=== PATIENT | male | born 1945 | race Caucasian/White ===

== ENCOUNTER → 2016-08-24 | Outpatient (CLI) | payer MEDICARE, OTHER ==
[~2016-08-24] MED LIST: ASPIRIN 81M81 MG/TA2 PO; BACTRIM DS 8001 TAB PO; CRANBERRY FRUI405 MG PO; FIBERCON; FLEXERIL10 MG PO; NORCO 325 MG-51 TAB PO; SEPTRA DS 8001 TAB PO; TYLENOL 325MG325 MG PO; TYLENOL 8 HR PO; VITAMIN C500 MG PO
== END ==
LOC: COL.RAD 09:07
DX: C61 Malignant neoplasm of prostate (principal); Z90.79 Acquired absence of other genital organ(s); R97.21 Rising PSA following treatment for malignant neoplasm of prostate; N28.1 Cyst of kidney, acquired; K76.0 Fatty (change of) liver, not elsewhere classified
CPT/HCPCS: A9503; Q9967

== ENCOUNTER 2018-03-06 11:56 | Day surgery (SDC) | payer MEDICARE, OTHER ==
[~2018-03-06] VITALS: Ht 167.6 cm; Wt 89.8 kg
[2018-03-06 12:15] VITALS: BP 120/76; PULSE 80; TEMP 97.9
[2018-03-06] MEDS ORDERED: ULTRAM 50MG TAB50 MG PO (13:01)
[2018-03-06] MEDS ORDERED: CRANBERRY500 M3 PO (13:02)
[2018-03-06] MEDS ORDERED: daily fiber PO (13:03)
[2018-03-06] MEDS ORDERED: MASON NATURAL2000 IU PO (13:04)
[2018-03-06] MEDS ORDERED: VITAMINC1000TA PO (13:05)
[2018-03-06 15:55] VITALS: BP 119/73; PULSE 70
[2018-03-06 16:10] VITALS: BP 100/58; PULSE 74
[2018-03-06 16:16] VITALS: TEMP 98.1
[2018-03-06 16:25] VITALS: BP 115/59; PULSE 68
== END 2018-03-06 17:00 | disposition home or self-care (01) ==
LOC: SDCO 11:56
DX: N21.0 Calculus in bladder (principal); R31.0 Gross hematuria; Z85.51 Personal history of malignant neoplasm of bladder; Z85.46 Personal history of malignant neoplasm of prostate; Q23.1 Congenital insufficiency of aortic valve; I35.0 Nonrheumatic aortic (valve) stenosis; J44.9 Chronic obstructive pulmonary disease, unspecified; Z85.9 Personal history of malignant neoplasm, unspecified; F17.210 Nicotine dependence, cigarettes, uncomplicated; Z80.0 Family history of malignant neoplasm of digestive organs; Z80.1 Family history of malignant neoplasm of trachea, bronchus and lung; Z87.442 Personal history of urinary calculi
CPT/HCPCS: J0690; J2704; J3010; J7120

== ENCOUNTER 2020-09-04 13:03 | Observation (INO) | payer MEDICARE, OTHER ==
[~2020-09-04] VITALS: Ht 167.6 cm; Wt 89.5 kg
[~2020-09-04 13:03] MED LIST changes: +CRANBERRY500 M3 PO; +MASON NATURAL2000 IU PO; +ULTRAM 50MG TAB50 MG PO; +VITAMINC1000TA PO; +daily fiber PO
[2020-09-04 13:36] LABS: BASO % 0.3 % (0.0-2.0); EOS # 0.1 (0.0-0.7); EOS % 1.4 % (0-4.0); GRAN # 4.5 (1.4-6.5); GRAN % 67.6 % (42.2-75.2); HEMATOCRIT 50.6 % (42.0-52.0); HEMOGLOBIN 16.5 g/dl (13.5-18.0); LYMPH # 1.3 (1.2-3.4); LYMPH % 19.6 % (20.0-51.0); MEAN CELL VOLUME 93 fl (80.0-100.0); MEAN CORPUSCULAR HEMOGLOBIN 30 pg (27.0-31.0); MEAN CORPUSCULAR HGB CONC 33 g/dl (33.0-37.0); MONO # 0.7 (0.1-0.6); PLATELET COUNT 214 K/mm3 (130-400); RED BLOOD COUNT 5.47 M/mm3 (4.20-5.60); REDCELL DISTRIBUTION WIDTH-CV 12.5 % (11.5-14.5)
[2020-09-04 13:48] LABS: ALBUMIN 4.5 gm/dL (3.5-5.0); BILIRUBIN,TOTAL 0.7 mg/dL (0.0-1.0); CALCIUM 9.3 mg/dL (8.4-10.2); CREATININE, serum 1.06 (0.66-1.25); POTASSIUM 4.8 mmol/L (3.4-5.0); TOTAL PROTEIN 7.9 gm/dL (6.4-8.2)
--- NOTE | 2020-09-04 19:42 | NUR ---
PT ASSISTED TO BATHROOM AFTER HE ATE A SANDWICH. GAIT SLOW AND STEADY. VOIDS WITHOUT PROBLEM. BACK TO BED, IVF TO LEFT FOREARM INFUSING WITHOUT PROBLEM. MEDICATED WITH SCHEDULED HS MED AND DOSE OF TRAMADOL 100MG PO AT THIS TIME. WANTS TO TAKE OXYCODONE ONLY LAST RESORT FOR PAIN MANAGEMENT.
[2020-09-04 20:19] VITALS: BP 113/53; PULSE 96; TEMP 98.1
[2020-09-04 23:22] VITALS: BP 127/60; PULSE 71; TEMP 97.9
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
--- NOTE | 2020-09-05 01:40 | NUR ---
MEDICATED WITH TRAMADOL 100MG PO FOR LEFT RIB PAIN. ASSISTED TO BATHROOM AND BACK TO BED.
[2020-09-05 03:50] VITALS: BP 119/58; PULSE 71; TEMP 97.3
[2020-09-05 08:09] VITALS: BP 127/63; PULSE 86; TEMP 97.7
--- NOTE | 2020-09-05 09:23 | NUR ---
PT UP TO BR WITH SBA, VOIDED AND HAD LG FORMED STOOL. PO PAIN MEDS FOR PAIN. VSS, PT WANTS TO GO HOME TODAY. EATING AND DRINKING NO N/V. MILD TO MODERATE PAIN TO RIBS AND BACK.
[2020-09-05] MEDS ORDERED: ULTRAM 50MG TAB50 MG PO (10:32)
[2020-09-05] MEDS ORDERED: ROXICODONE 55 MG/TAB PO (10:32)
== END 2020-09-05 11:32 | disposition home or self-care (01) ==
LOC: COL.ER 13:03 → SURG 15:52
PROVIDERS: Nurse Practitioner; ADMIT Surgery
DX: S22.42XA Multiple fractures of ribs, left side, initial encounter for closed fracture (principal); S32.018A Other fracture of first lumbar vertebra, initial encounter for closed fracture; R55 Syncope and collapse; M19.90 Unspecified osteoarthritis, unspecified site; G89.29 Other chronic pain; M54.5 Low back pain; F17.210 Nicotine dependence, cigarettes, uncomplicated; W11.XXXA Fall on and from ladder, initial encounter; Z88.1 Allergy status to other antibiotic agents; Z90.89 Acquired absence of other organs; Z90.79 Acquired absence of other genital organ(s); Z79.899 Other long term (current) drug therapy
CPT/HCPCS: 99222; 99231-AI; A9284; G0378; J7030

== ENCOUNTER → 2020-11-22 | Outpatient (CLI) | payer MEDICARE, OTHER ==
[~2020-11-22] MED LIST changes: +ROXICODONE 55 MG/TAB PO
== END ==
LOC: COL.RAD 10:00
DX: Z12.2 Encounter for screening for malignant neoplasm of respiratory organs (principal); F17.210 Nicotine dependence, cigarettes, uncomplicated; R91.8 Other nonspecific abnormal finding of lung field

== ENCOUNTER → 2021-11-24 | Outpatient (CLI) | payer MEDICARE, OTHER | LOC: COL.RAD 10-07 14:00 | DX: Z12.2 Encounter for screening for malignant neoplasm of respiratory organs (principal); J43.9 Emphysema, unspecified; R91.8 Other nonspecific abnormal finding of lung field; F17.210 Nicotine dependence, cigarettes, uncomplicated ==

== ENCOUNTER 2023-02-22 08:00 | Outpatient (RCR) | payer MEDICARE, OTHER | END 2023-03-01 | disposition home or self-care (01) | LOC: MKS.ESL.PT | DX: M54.50 Low back pain, unspecified (principal) ==

== ENCOUNTER → 2023-04-05 | Outpatient (CLI) | payer MEDICARE, OTHER | LOC: MHCPAIN 07:46 | DX: M47.817 Spondylosis without myelopathy or radiculopathy, lumbosacral region (principal); M54.50 Low back pain, unspecified | CPT/HCPCS: J0665 ==

== ENCOUNTER → 2023-07-30 | Outpatient (CLI) | payer MEDICARE, OTHER ==
[~2023-07-30] MED LIST changes: +Lidocaine PF 2% (20 MG/ML) 5 ML VIAL ONE; +Midazolam 2 MG/2 ML VIAL ONE; +fentaNYL 50 MCG/ML 2 ML VIAL ONE
== END ==
LOC: MHCPAIN 08:31
DX: M47.817 Spondylosis without myelopathy or radiculopathy, lumbosacral region (principal)
CPT/HCPCS: J0665; J2250; J3010

== ENCOUNTER → 2023-10-17 | Outpatient (CLI) | payer MEDICARE, OTHER ==
[~2023-10-17] MED LIST changes: +ASPIRIN E.C. 8181 MG PO; +LIPITOR 80MG80 MG PO; -Lidocaine PF 2% (20 MG/ML) 5 ML VIAL ONE; +MAGNESIUM250 M1 PO; +MOBIC15 MG PO; -Midazolam 2 MG/2 ML VIAL ONE; +NITROSTAT0.4 MG/TAB SL; +TOPROL XL 25MG25 MG PO; +TURMERIC500 MG PO; -fentaNYL 50 MCG/ML 2 ML VIAL ONE
== END ==
LOC: MHCPAIN 11:09
DX: M48.061 Spinal stenosis, lumbar region without neurogenic claudication (principal); M47.816 Spondylosis without myelopathy or radiculopathy, lumbar region
CPT/HCPCS: G0463

== ENCOUNTER 2023-10-28 12:33 | Inpatient (IN) | payer MEDICARE, OTHER ==
[~2023-10-28] VITALS: Ht 162.6 cm; Wt 66.4 kg
[~2023-10-28 12:33] MED LIST changes: -ASPIRIN E.C. 8181 MG PO; -LIPITOR 80MG80 MG PO; -MAGNESIUM250 M1 PO; -MOBIC15 MG PO; -NITROSTAT0.4 MG/TAB SL; -TOPROL XL 25MG25 MG PO; -TURMERIC500 MG PO
[2023-10-28 12:52] LABS: BASO % 0.4 % (0.0-2.0); EOS # 0.1 K/mm3 (0.0-0.7); EOS % 1.6 % (0.0-4.0); GRAN # 6.2 K/mm3 (1.4-6.5); GRAN % 69.6 % (42.2-75.2); HEMATOCRIT 50.2 % (42.0-52.0); HEMOGLOBIN 16.6 g/dl (13.5-18.0); LYMPH # 1.7 K/mm3 (1.2-3.4); LYMPH % 18.5 % (20.0-51.0); MEAN CELL VOLUME 93 fl (80.0-100.0); MEAN CORPUSCULAR HEMOGLOBIN 31 pg (27-31); MEAN CORPUSCULAR HGB CONC 33 g/dl (33.0-37.0); MEAN PLATELET VOLUME 9.1 fl (7.4-10.4); MONO # 0.8 K/mm3 (0.1-0.6); MONO % 9.2 % (1.7-9.3); PLATELET COUNT 213 K/mm3 (130-400); RED BLOOD COUNT 5.42 M/mm3 (4.20-5.60); REDCELL DISTRIBUTION WIDTH-CV 12.7 % (11.5-14.5)
[2023-10-28] MEDS ORDERED: NS 1,000 ML IV ONE (13:00)
[2023-10-28 13:12] LABS: ALBUMIN 3.9 g/dL (3.4-4.8); BILIRUBIN,TOTAL 0.3 mg/dL (0.2-1.2); CALCIUM 10.2 mg/dL (8.4-10.2); CREATININE, serum 1.23 mg/dL (0.72-1.25); TOTAL PROTEIN 7.8 g/dl (6.2-8.1)
[2023-10-28 13:18] LABS: TROPONIN-I 0.015 ng/mL (0.00-0.033)
[2023-10-28] MEDS ORDERED: Morphine 4 MG/ML VIAL IV PRN ×2 (13:45→15:00)
[2023-10-28] MEDS ORDERED: Mag/Al Hydrox/Simeth Susp 30 ML CUP PO PRN (14:45)
[2023-10-28] MEDS ORDERED: Magnes Hydrox (MOM) 80 MG/ML 30 ML CUP PO PRN (14:45)
[2023-10-28] MEDS ORDERED: Ondansetron 4 MG/2 ML VIAL IV PRN ×2 (14:45→15:00)
[2023-10-28] MEDS ORDERED: Heparin 5,000 UNITS/ML 1 ML VIAL IV ONE (14:45)
[2023-10-28] MEDS ORDERED: Heparin 5,000 UNITS/ML 1 ML VIAL IV PRN (14:45)
[2023-10-28] MEDS ORDERED: Heparin/D5W 250 ML IV SCH (14:45)
[2023-10-28] MEDS ORDERED: Albuterol/Ipratropium 3 MG-0.5 MG/3 ML Neb Soln IH PRN (15:00)
[2023-10-28] MEDS ORDERED: oxyCODONE 5 MG TAB PO PRN (15:00)
[2023-10-28] MEDS ORDERED: Acetaminophen 500 MG TAB PO PRN (15:00)
[2023-10-28 16:25] LABS: INR 1.1 (0.8-3.0); PROTHROMBIN TIME 11.5 SECONDS (9.7-12.8)
[2023-10-28] MEDS ORDERED: Albuterol/Ipratropium 3 MG-0.5 MG/3 ML Neb Soln IH SCH (16:30)
[2023-10-28 16:49] LABS: PARTIAL THROMBOPLASTIN TIME 177.6 SECONDS (26.0-37.0)
[2023-10-28 16:59] VITALS: BP 140/69; PULSE 66; TEMP 98.1
--- NOTE | 2023-10-28 17:32 | NUR ---
KALPESH ARRIVED TO UNIT FROM ER AWAKE ALERT AND ORIENTED. PATIENT STATES HIS CHEST PAIN IS STILL THERE, SITS IN THE LEFT UPPER CHEST, RADIATES TO LEFT SHOULDER, 4/10 ON NUMERIC PAIN SCALE, CONSTANT, DOES NOT STOP. PATIENT FEELS LIKE ITS "ALWAYS THERE." PER PATIENT HE SEES DR LOWRY AN OUT PATIENT (HAS ONLY SEEN ESSENCE NURSE SIN). PATIENT APPEARS TO BE IN NO ACUTE PAIN/DSICOMFORT. PATIENT DENIES ANY SOB.
--- NOTE | 2023-10-28 17:35 | NUR ---
THIS RN WAS CALLED BY LAB AND INFORMED OF PATIENT HIGH PTT AND XA RESULT. THIS RN ASKED THE ER NURSE THAT MARLEE THE PATINET TO THE UNIT IF HIS XA LAB WAS DRAWN BEFORE OR AFTER THE HEPARIN DRIP WAS INITIATED. THE ER NURSE STATED "I DONT KNOW. DID THEY?" AFTER JONAS DIGGING THIS RN FOUND OUT LAB HAD ADDED ON THE XA AND PTT TO BLOOD TAKEN AFTER HEPARIN DRIP WAS INITIATED,AND NO LONGER HAD THE BLOOD WORK DRAWN PRIOR TO THIS. MD CONTACT AND INFORMED, AND ORDERED NEW HEP XA FOR NOW, AND STATED THIS RN TO TITRATE DRIP PER PROTOCOL BASED OFF THE NEW RESULT.
[2023-10-28] MEDS ORDERED: Nitroglycerin 2% Topical Oint 1 GM UD TD SCH (18:00)
--- NOTE | 2023-10-28 18:30 | NUR ---
XA NOW 0.47- PER PROTOCOL GOAL, NO CHANGE
[2023-10-28] MEDS ORDERED: TURMERIC500 MG PO (18:40)
[2023-10-28] MEDS ORDERED: MAGNESIUM250 M1 PO (18:40)
[2023-10-28] MEDS ORDERED: MOBIC15 MG PO (18:41)
--- NOTE | 2023-10-28 19:04 | NUR ---
PATIENT SITTING UP IN BED WATCHING TV WITH FAMILY AT BEDSIDE WITH NO ACUTE DISTRESS NOTED. PATIENT ON ROOM AIR. HEPARIN INFUSING INTO LEFT WRIST WITH NO COMPLICATIONS NOTED. PATIENT REQUESTED OXYGEN DUE TO WEARING IT AT HOME AT NIGHT. PATIENT VERBALIZED UNDERSTANDING THAT NC WOULD BE GIVEN. PATIENT DENIES ANY OTHER NEEDS AT THIS TIME. PATIENT CARE ASSUMED FROM [facility]. BED IN LOW POSITION WITH WHEELS LOCKED WITH RAILS UP X2 AND CALL LIGHT WITHIN REACH.
[2023-10-28 19:24] VITALS: BP 128/74; PULSE 89; TEMP 98
[2023-10-28 20:55] VITALS: BP_SYST 128
--- NOTE | 2023-10-28 20:55 | NUR ---
PATIENT RESTING IN BED WATCHING TV WITH NO FAMILY PRESENT WITH NO ACUTE DISTRESS NOTED. PATIENT ON ROOM AIR. HEPARIN INFUSING INTO LEFT WRIST WITH NO COMPLICATIONS NOTED. ASSESSMENT AND MEDICATION ADMINISTRATION COMPLETED AT THIS TIME. PATIENT TOLERATED WELL. PATIENT REQUESTED DIET SPRITE AND ICE CREAM. ICE CREAM, CUP OF ICE, AND DIET SPRITE GIVEN. PATIENT DENIES ANY OTHER NEEDS. BED IN LOW POSITION WITH WHEELS LOCKED WITH RAILS UP X2 AND CALL LIGHT WITHIN REACH.
[2023-10-28] MEDS ORDERED: Docusate Sodium 100 MG CAP PO SCH (21:00)
[2023-10-28] MEDS ORDERED: Melatonin 3 MG TAB PO PRN (21:00)
[2023-10-28] MEDS ORDERED: Famotidine 20 MG TAB PO SCH (21:00)
--- NOTE | 2023-10-28 22:30 | NUR ---
HOSPITALIST DIONISIO REDDY CALLED FOR HIGH CRITICAL TROPONIN OF 0.748. NO NEW ORDERS RECIEVED.
[2023-10-28 23:31] VITALS: BP 121/62; PULSE 64; TEMP 97.6
[2023-10-29] VITALS (21 sets, daily range): BP systolic 93–129; BP diastolic 42–80; PULSE 66–101; TEMP 98–98.7
[2023-10-29 07:13] LABS: CALCIUM 9.3 mg/dL (8.4-10.2); CHOLESTEROL RISK RATIO 4.8; CREATININE, serum 1.07 mg/dL (0.72-1.25); MAGNESIUM 1.9 mg/dL (1.6-2.6); POTASSIUM 4.1 mEq/L (3.5-4.5)
[2023-10-29] MEDS ORDERED: Cholecalciferol (Vit D3) 1000 Units TAB PO SCH (09:00)
[2023-10-29] MEDS ORDERED: Ascorbic Acid 500 MG TAB PO SCH (09:00)
--- NOTE | 2023-10-29 09:00 | NUR ---
PATIENT SITTING UP ON EDGE OF BED UPON ENTERING ROOM. MORNING MEDICATIONS HELD DUE TO NPO STATUS. HEPARIN GTT INFUSING. UPDATED PATIENT ON PLAN OF CARE. PATIENT REPORTS PAIN OF 1/10 TO HIS CHEST AT THIS TIME. WILL CONTINUE TO MONITOR.
[2023-10-29] MEDS ORDERED: 1/2 NS 1,000 ML IV SCH ×2 (09:15→11:00)
--- NOTE | 2023-10-29 09:54 | NUR ---
SEE MERGE FOR PROCEDURE DOCUMENTATION
--- NOTE | 2023-10-29 09:55 | NUR ---
PATIENT OFF UNIT AT THIS TIME FOR PROCEDURE.
[2023-10-29] MEDS ORDERED: Heparin 1,000 UNITS/ML 10 ML Multi-Dose VIAL IV SCH (10:23)
[2023-10-29] MEDS ORDERED: fentaNYL 50 MCG/ML 2 ML VIAL IV SCH (10:28)
[2023-10-29] MEDS ORDERED: niCARdipine (Cath Lab) 100 MCG/ML 10 ML VIAL INCOR SCH (10:29)
[2023-10-29] MEDS ORDERED: Iohexol 350 - 100 ML VIAL INCOR ONE (10:31)
--- NOTE | 2023-10-29 11:00 | NUR ---
PATIENT ARRIVED BACK TO UNIT AT THIS TIME. TR BAND INTACT WITH 14CC OF AIR, SITE IS C/D/I. PATIENT DENIES ANY PAIN. VITAL SIGNS STABLE, WILL CONTINUE TO MONITOR.
--- NOTE | 2023-10-29 11:17 | NUR ---
PATIENT SPO2 ON RA 96%, TAKING RT TX NOW, TOLERATING WELL/
--- NOTE | 2023-10-29 12:13 | NUR ---
1100-PATIENT ALERT AND ORIENTED, TRANSFERRED VIA SLIDE INDEPENDENTLY TO BED AND TRANSPORTED TO [facility]. RADIAL SITE ASSESSED, CDI. PATIENT AMBULATED WITH SBA TO BATHROOM AND VOIDED. POSITIONED BACK IN BED WITH RIGHT ARM ELEVATED ON PILLOW, VITAL SIGNS TAKEN. VSS. PT DENIES PAIN AT THIS TIME. TRANSFER OF CARE TO GALLO CASEY. CALL LIGHT PLACED WITHIN REACH, BED IN LOWEST POSITION, X3 BEDRAILS IN PLACE.
--- NOTE | 2023-10-29 14:49 | NUR ---
14CC OF AIR REMOVED FROM TR BAND. THIS RN REMOVED THE BAND AT THIS TIME. SITE IS C/D/I WITH NO HEMATOMA. BANDAID IN PLACE. VITAL SIGNS STABLE. WILL CONTINUE TO MONITOR.
--- NOTE | 2023-10-29 15:18 | NUR ---
Mold Design Engineer met with patient to discuss discharge planning. Patient lives in [place] with his , Sweta (ph#[phone]) and sees Dr. Shelton for primary care. Patient has most of his medications mailed to him from the [facility] but also utilizes the [facility]. Patient uses nighttime oxygen from [facility]. Patient reported he is independent with ADLS including driving. Patient stated his is his DPOA-HC. Patient plans to return home at time of discharge. Discharge Plan; Home
[2023-10-29] MEDS ORDERED: Famotidine 20 MG TAB PO SCH (21:00)
--- NOTE | 2023-10-29 23:32 | NUR ---
PATIENT AMBULATING IN PARR. PATIENT STOPPED AT THE NURSES STATION TO TELL NURSE THE TYLENOL ADMINISTERED EARLIER WAS INEFFECTIVE. THIS NURSE ADMINISTERED OXYCODONE PRN PER AUG. WILL MONITOR
[2023-10-30] VITALS (14 sets, daily range): BP systolic 114–136; BP diastolic 67–80; PULSE 61–78; TEMP 97.8–99.2
--- NOTE | 2023-10-30 05:33 | NUR ---
PATIENT AMBULATING HALLS. ALERT AND ORIENTED. HAD SHOWER THIS AM. HAS BEEN NPO SINCE 0000. PATIENT DENIES NEEDS OR CONCERNS.
[2023-10-30 07:04] LABS: CALCIUM 9.1 mg/dL (8.4-10.2); CREATININE, serum 0.96 mg/dL (0.72-1.25)
[2023-10-30] MEDS ORDERED: 1/2 NS 1,000 ML IV SCH ×2 (08:15→08:45)
[2023-10-30 08:25] LABS: BASO % 0.4 % (0.0-2.0); EOS # 0.1 K/mm3 (0.0-0.7); EOS % 1.8 % (0.0-4.0); GRAN # 4.9 K/mm3 (1.4-6.5); GRAN % 67.3 % (42.2-75.2); HEMATOCRIT 44.3 % (42.0-52.0); HEMOGLOBIN 15.1 g/dl (13.5-18.0); LYMPH # 1.3 K/mm3 (1.2-3.4); LYMPH % 17.8 % (20.0-51.0); MEAN CELL VOLUME 89 fl (80.0-100.0); MEAN CORPUSCULAR HEMOGLOBIN 30 pg (27-31); MEAN CORPUSCULAR HGB CONC 34 g/dl (33.0-37.0); MEAN PLATELET VOLUME 9.6 fl (7.4-10.4); MONO # 0.9 K/mm3 (0.1-0.6); PLATELET COUNT 194 K/mm3 (130-400); RED BLOOD COUNT 4.98 M/mm3 (4.20-5.60); REDCELL DISTRIBUTION WIDTH-CV 12.8 % (11.5-14.5)
--- NOTE | 2023-10-30 09:15 | NUR ---
PATIENT ALERT AND ORIENTED X4.PATIENT LAYING IN BED RESTING. PATIENT CURRENTLY NPO FOR PROCEDURE. PATIENT DENIES AY CHEST PAIN OR SOB AT THIS TIME. PATIENT VSS WITH IN NORMAL LIMITS. CALL LIGHT WITHIN REACH. BED AT LOWEST POSITION.
[2023-10-30] MEDS ORDERED: LR 1,000 ML IV SCH (10:45)
[2023-10-30] MEDS ORDERED: Iohexol 300 - 100 ML VIAL IV ONE (11:13)
[2023-10-30] MEDS ORDERED: NS 100 ML IV SCH (11:14)
--- NOTE | 2023-10-30 14:54 | NUR ---
Pt back to Medical 352 - bedside handoff performed with GALLO Hassan. Vitals initiated and stable, pt AOx4. Call light in reach, no family at bedside.
[2023-10-30] MEDS ORDERED: LIPITOR 80MG80 MG PO (15:29)
[2023-10-30] MEDS ORDERED: ASPIRIN E.C. 8181 MG PO (15:30)
[2023-10-30] MEDS ORDERED: NITROSTAT0.4 MG/TAB SL (15:31)
[2023-10-30] MEDS ORDERED: TOPROL XL 25MG25 MG PO (15:32)
--- NOTE | 2023-10-30 17:22 | NUR ---
PATIENT DISCHARGE INSTRUCTIONS GIVEN. PATIENT QUESTIONS ANSWERED. IV AND TELE REMOVED. PATIENT EXPRESSES BEING READY TO GO HOME. DENIES ANY CHEST PAIN. PATIENT WILL BE ESCORTED OUT OF UNIT BY PCT.
--- NOTE | 2023-10-30 17:25 | NUR ---
PATIENT ESCORTED OUT OF UNIT BY PCT.
== END 2023-10-30 17:24 | disposition home or self-care (01) | DRG 282 ==
LOC: COL.ER 12:33 → MEDICAL 14:05
PROVIDERS: Emergency Medicine; Physician Assistant; ADMIT Internal Medicine
PROC: 4A023N7 Measurement of Cardiac Sampling and Pressure, Left Heart, Percutaneous Approach (ICD-10-PCS; principal; 2023-10-29)
PROC: B2111ZZ Fluoroscopy of Multiple Coronary Arteries using Low Osmolar Contrast (ICD-10-PCS; 2023-10-29)
DX: I21.4 Non-ST elevation (NSTEMI) myocardial infarction (principal); G89.29 Other chronic pain; F17.210 Nicotine dependence, cigarettes, uncomplicated; E78.5 Hyperlipidemia, unspecified; M19.90 Unspecified osteoarthritis, unspecified site; I35.1 Nonrheumatic aortic (valve) insufficiency; J43.9 Emphysema, unspecified; I20.0 Unstable angina; M54.9 Dorsalgia, unspecified; Z85.46 Personal history of malignant neoplasm of prostate; Z85.51 Personal history of malignant neoplasm of bladder; Z90.89 Acquired absence of other organs; Z92.3 Personal history of irradiation; Z88.1 Allergy status to other antibiotic agents; Z79.899 Other long term (current) drug therapy; Z23 Encounter for immunization
CPT/HCPCS: C1769; C1894; G0378; J1644; J2270; J2404; J2704; J3010; J7030; Q9967

== ENCOUNTER → 2023-11-08 | Outpatient (CLI) | payer MEDICARE, OTHER ==
[~2023-11-08] MED LIST changes: +ASPIRIN E.C. 8181 MG PO; +LIPITOR 80MG80 MG PO; +MAGNESIUM250 M1 PO; +MOBIC15 MG PO; +NITROSTAT0.4 MG/TAB SL; +TOPROL XL 25MG25 MG PO; +TURMERIC500 MG PO
== END ==
LOC: MHCPAIN 11-07 08:15
DX: M54.16 Radiculopathy, lumbar region (principal)

== ENCOUNTER → 2023-12-24 | Outpatient (CLI) | payer MEDICARE, OTHER | LOC: MHCPAIN 13:15 | DX: M47.817 Spondylosis without myelopathy or radiculopathy, lumbosacral region (principal); M48.061 Spinal stenosis, lumbar region without neurogenic claudication; E11.40 Type 2 diabetes mellitus with diabetic neuropathy, unspecified; M25.512 Pain in left shoulder; Z79.4 Long term (current) use of insulin | CPT/HCPCS: G0463 ==

== ENCOUNTER 2024-02-20 17:22 | Inpatient (IN) | payer MEDICARE, OTHER ==
[~2024-02-20] VITALS: Ht 162.6 cm; Wt 83.6 kg
[2024-02-20] MEDS ORDERED: Ondansetron 4 MG/2 ML VIAL IV ONE (17:45)
[2024-02-20] MEDS ORDERED: NS 1,000 ML IV ONE (17:45)
[2024-02-20] MEDS ORDERED: Morphine 4 MG/ML VIAL IV ONE (17:45)
[2024-02-20 18:25] LABS: BASO % 0.3 % (0.0-2.0); EOS # 0.1 K/mm3 (0.0-0.7); GRAN # 8.2 K/mm3 (1.4-6.5); GRAN % 85.3 % (42.2-75.2); HEMATOCRIT 39.8 % (42.0-52.0); HEMOGLOBIN 12.8 g/dl (13.5-18.0); LYMPH # 0.8 K/mm3 (1.2-3.4); LYMPH % 7.9 % (20.0-51.0); MEAN CELL VOLUME 92 fl (80.0-100.0); MEAN CORPUSCULAR HEMOGLOBIN 30 pg (27-31); MEAN CORPUSCULAR HGB CONC 32 g/dl (33.0-37.0); MEAN PLATELET VOLUME 9.1 fl (7.4-10.4); MONO # 0.5 K/mm3 (0.1-0.6); MONO % 5.2 % (1.7-9.3); PLATELET COUNT 245 K/mm3 (130-400); RED BLOOD COUNT 4.34 M/mm3 (4.20-5.60); REDCELL DISTRIBUTION WIDTH-CV 13.4 % (11.5-14.5)
[2024-02-20 18:50] LABS: ALANINE AMINOTRANSFERASE 18 U/L (0-55); ALBUMIN 4.2 g/dL (3.4-4.8); ALKALINE PHOSPHATASE 108 U/L (40-150); ANION GAP 13 mmol/L (7-16); AST,SGOT 14 U/L (5-34); BILIRUBIN,TOTAL 0.3 mg/dL (0.2-1.2); BLOOD UREA NITROGEN 15 mg/dL (8-26); CALCIUM 10.1 mg/dL (8.4-10.2); CHLORIDE 107 mEq/L (98-107); GLUCOSE 130 mg/dL (70-99); LIPASE 16 U/L (8-78); POTASSIUM 3.8 mEq/L (3.5-4.5); SODIUM 143 mEq/L (136-145); TOTAL PROTEIN 7.8 g/dl (6.2-8.1)
[2024-02-20 19:13] LABS: TROPONIN-I < 0.010 ng/mL (0.00-0.033)
[2024-02-20] MEDS ORDERED: Ketorolac 30 MG/ML VIAL IV ONE (19:15)
[2024-02-20] MEDS ORDERED: Iohexol 300 - 100 ML VIAL IV ONE (19:36)
[2024-02-20] MEDS ORDERED: NS 100 ML IV ONE (19:36)
[2024-02-20] MEDS ORDERED: HYDROmorphone 0.5 MG/0.5 ML SYRINGE IV PRN (20:15)
[2024-02-20] MEDS ORDERED: Acetaminophen 325 MG TAB PO PRN (20:15)
[2024-02-20] MEDS ORDERED: Ondansetron 4 MG/2 ML VIAL IV PRN (20:15)
[2024-02-20] MEDS ORDERED: NS 1,000 ML IV SCH (20:15)
[2024-02-20] MEDS ORDERED: LIPITOR 80MG80 MG PO (20:35)
[2024-02-20] MEDS ORDERED: PLAVIX 75MG TAB75 MG PO (20:35)
[2024-02-20] MEDS ORDERED: CRANBERRY FRUI425 MG PO (20:37)
[2024-02-20] MEDS ORDERED: traMADol 50 MG TAB PO PRN (20:45)
[2024-02-20 21:45] LABS: COLLECTION METHOD CATHETER
[2024-02-20 21:51] LABS: URINE APPEARANCE CLEAR (CLEAR/HAZY); URINE BLOOD NEGATIVE (NEGATIVE); URINE COLOR YELLOW (YELLOW); URINE GLUCOSE NEGATIVE (NEGATIVE); URINE KETONE NEGATIVE (NEGATIVE); URINE NITRATE NEGATIVE (NEGATIVE); URINE PROTEIN(semi-quant) 1+ (NEGATIVE); URINE UROBILINOGEN 0.2 E.U/dL (0.2-1.0)
[2024-02-21] VITALS (17 sets, daily range): BP systolic 100–127; BP diastolic 50–70; PULSE 84–99; TEMP 98.1–99.5
--- NOTE | 2024-02-21 04:06 | NUR ---
Patient arrived to surgical unit from ER at approximately 0330. Alert and oriented, and able to make needs known. Reports level 7 pain to abdomen. Given PRN Dilaudid as requested. Peripheral IV to right forearm with IV fluids and Zosyn running per orders. Denies SOB and dyspnea. LS CTA. HRR. BS hypoactive. Reports BM 02/20/2024. No edema. Patient aware that he is NPO for US of abdomen this morning. Voices no questions, needs, or concerns at this time. In bed with call light within reach.
--- NOTE | 2024-02-21 06:01 | NUR ---
Patient reports pain doing better after 2nd dose of dilaudid. Denies nausea. Continues on IV fluids per orders. Voices no questions, needs, or concerns at this time. In bed with call light within reach.
[2024-02-21 06:21] LABS: BASO % 0.2 % (0.0-2.0); GRAN # 11.9 K/mm3 (1.4-6.5); GRAN % 88.1 % (42.2-75.2); HEMOGLOBIN 11.5 g/dl (13.5-18.0); LYMPH # 0.5 K/mm3 (1.2-3.4); LYMPH % 3.8 % (20.0-51.0); MEAN CELL VOLUME 91 fl (80.0-100.0); MEAN CORPUSCULAR HEMOGLOBIN 30 pg (27-31); MEAN CORPUSCULAR HGB CONC 33 g/dl (33.0-37.0); MEAN PLATELET VOLUME 9.4 fl (7.4-10.4); MONO % 7.6 % (1.7-9.3); PLATELET COUNT 220 K/mm3 (130-400); RED BLOOD COUNT 3.88 M/mm3 (4.20-5.60); REDCELL DISTRIBUTION WIDTH-CV 13.6 % (11.5-14.5)
[2024-02-21 06:32] LABS: ALBUMIN 3.3 g/dL (3.4-4.8); BILIRUBIN,TOTAL 0.5 mg/dL (0.2-1.2); CALCIUM 9.9 mg/dL (8.4-10.2); CREATININE, serum 0.99 mg/dL (0.72-1.25); HEMATOCRIT 35.1 % (42.0-52.0); POTASSIUM 3.8 mEq/L (3.5-4.5); TOTAL PROTEIN 6.1 g/dl (6.2-8.1)
--- NOTE | 2024-02-21 08:15 | NUR ---
SHIFT ASSESSMENT COMPLETE. VSS. PATIENT AWAKE IN BED PREPARING TO WORK W/PT. ALL MORNING MEDS GIVEN PER ORDERS. PATIENT COMPLAINS OF PAIN 7/10 PAIN MEDS GIVEN ORDERED. PATIENT HAS NO OTHER REQUEST AT THIS TIME. CALL LIGHT IN REACH
[2024-02-21] MEDS ORDERED: Clopidogrel 75 MG TAB PO SCH (09:00)
[2024-02-21] MEDS ORDERED: Pantoprazole 40 MG in NS 10 ML IV SCH (09:00)
[2024-02-21] MEDS ORDERED: Atorvastatin 80 MG TAB PO SCH (09:00)
[2024-02-21] MEDS ORDERED: LR 1,000 ML IV SCH ×2 (11:30→15:15)
--- NOTE | 2024-02-21 11:41 | NUR ---
dry dip worker met with pt to discuss discharge planning. He reports to live with his , Sweta [phone] in [place]. He sees Dr. Shelton for PCP needs and obtains medications from [facility] or the ID with no difficulties. He reports to be independent with ADLS and uses oxygen at night through [facility] for DME. He states his is DPOA-HC and a copy is at home. He says that he is anticipating getting surgery today. PT/OT Pending Discharge Plan: tbd by medical progress
[2024-02-21] MEDS ORDERED: Albuterol/Ipratropium 3 MG-0.5 MG/3 ML Neb Soln IH PRN (12:00)
[2024-02-21] MEDS ORDERED: Indocyanine Green 6.25 MG in Water For Injection,Sterile 1.25 ML IV SCH (13:00)
[2024-02-21] MEDS ORDERED: HYDROmorphone 0.5 MG/0.5 ML SYRINGE IV PRN (15:30)
[2024-02-21] MEDS ORDERED: Rocuronium 50 MG/5 ML Multi-Dose VIAL ONE ×2 (16:55→17:31)
[2024-02-21] MEDS ORDERED: Succinylcholine PF 200 MG/10 ML SYRINGE IV ONE (16:55)
[2024-02-21] MEDS ORDERED: fentaNYL 50 MCG/ML 2 ML VIAL ONE ×2 (16:55)
[2024-02-21] MEDS ORDERED: Glycopyrrolate 0.2 MG/ML 1 ML VIAL ONE (16:59)
[2024-02-21] MEDS ORDERED: Phenylephrine 10 MG/ML VIAL ONE (16:59)
[2024-02-21] MEDS ORDERED: NS 10 ML IV ONE (16:59)
[2024-02-21] MEDS ORDERED: Ondansetron 4 MG/2 ML VIAL ONE ×2 (16:59→17:14)
[2024-02-21] MEDS ORDERED: NS 250 ML IV ONE (16:59)
[2024-02-21] MEDS ORDERED: NS 100 ML IV ONE (16:59)
[2024-02-21] MEDS ORDERED: Topical Skin Adhesive 1 EACH (1 ML) TOP ONE (17:22)
[2024-02-21] MEDS ORDERED: dexAMETHasone 10 MG/ML VIAL ONE (17:41)
[2024-02-21] MEDS ORDERED: Ondansetron 4 MG/2 ML VIAL IV PRN (18:15)
[2024-02-21] MEDS ORDERED: fentaNYL 50 MCG/ML 1 ML SYRINGE/VIAL [PACU/SDC ONLY] IV PRN (18:15)
[2024-02-21] MEDS ORDERED: HYDROmorphone 1 MG/1 ML SYRINGE [PACU/SDC ONLY] IV PRN (18:15)
[2024-02-21] MEDS ORDERED: hydrALAZINE 20 MG/ML 1 ML VIAL IV PRN (18:15)
--- NOTE | 2024-02-21 23:44 | NUR ---
Patient arrived to surgical unit from PACU at approximately 2009. Alert and oriented, and able to make needs known. Reported pain at a 7. IV to right forearm infiltrated. New one started to left upper arm. Continues on IV fluids and ABX per orders. Given PRN Dilaudid as requested for pain around 2054 and 2249. Patient reports pain with taking deep breaths. Did get up and ambulate in hallway with walker and one assist, which patient reported helped with pain and being able to take deeper breaths. LS CTA in upper lobes, diminished in lower. On oxygen at 2 L/min via OM. Reports OM helps better than NC. HRR. Telemetry in place. BSAx4. Not passing gas yet. Patient has 4 lap sites. Sites are all open to air. Site to RLQ had some edema to site. No drainage or discoloration noted. PACU nurse stated that it looks better now than when patient first came out of OR. Ice to site. Patient's site to umbilical area with small amount of bloody drainage when he got here from PACU. Cleansed, no further drainage. Patient give pudding, OJ, applesauce, and water as requested. Voices no further questions, needs, or concerns at this time. In bed with call light within reach. Bed alarm on.
[2024-02-22] VITALS (11 sets, daily range): BP systolic 120–147; BP diastolic 54–69; PULSE 81–94; TEMP 98.1–98.7
--- NOTE | 2024-02-22 01:32 | NUR ---
Patient given PRN Dilaudid for pain as requested. Did not want to walk a second time tonight.
--- NOTE | 2024-02-22 05:33 | NUR ---
Patient ambulated a second time in the hallway. Given PRN Dilaudid as requested for pain. Patient is passing gas, but no BM. Able to void. Continues on IV fluids and ABX per orders. Tolerating PO food and fluids well. Continues on oxygen at 2 L/min via OM. Voices no further questions, needs, or concerns at this time. In bed with call light within reach. Bed alarm on.
[2024-02-22 06:39] LABS: MEAN CELL VOLUME 92 fl (80.0-100.0); MEAN CORPUSCULAR HGB CONC 32 g/dl (33.0-37.0); MEAN PLATELET VOLUME 9.5 fl (7.4-10.4); PLATELET COUNT 187 K/mm3 (130-400); RED BLOOD COUNT 3.26 M/mm3 (4.20-5.60); REDCELL DISTRIBUTION WIDTH-CV 13.6 % (11.5-14.5)
[2024-02-22 06:45] LABS: HEMOGLOBIN 9.6 g/dl (13.5-18.0); MEAN CORPUSCULAR HEMOGLOBIN 29 pg (27-31)
[2024-02-22 06:57] LABS: ALBUMIN 2.7 g/dL (3.4-4.8); BILIRUBIN,TOTAL 0.3 mg/dL (0.2-1.2); CALCIUM 9.6 mg/dL (8.4-10.2); CREATININE, serum 1.04 mg/dL (0.72-1.25); POTASSIUM 3.9 mEq/L (3.5-4.5); TOTAL PROTEIN 5.6 g/dl (6.2-8.1)
[2024-02-22 07:40] LABS: BAND 4 % (0-10); HYPOCHROMIA 1+; LYMPHOCYTE 2 % (20.0-51.0); NEUTROPHILS 81 % (42.0-75.2); PLATELET ESTIMATE NORMAL (NORMAL)
[2024-02-22 07:42] LABS: POIKILOCYTOSIS 1+
--- NOTE | 2024-02-22 08:00 | NUR ---
Discussed pt with Dr Bowman. Mentioned that pt was having complaints of pain to his RLQ, reports "feels like I broke a rib." Additional pain medication ordered.
[2024-02-22] MEDS ORDERED: Q4H PRN PO (08:30)
[2024-02-22] MEDS ORDERED: OXYCODONE 5 MG PO (08:30)
--- NOTE | 2024-02-22 08:43 | NUR ---
Pt rang call light around 0700 for pain medication. He was not able to have IV pain medication at this time, oral pain medication given. Pt ringing light again stating that he would like more pain medication and would to keep getting it whenever he can have some. Pt has had breakfast with no issues or complaints of nausea. Pt refusing to sit up in the chair at this time. Will ambulate once this pain medication is given
--- NOTE | 2024-02-22 11:46 | NUR ---
D: Collections Technician stopped by room on rounds. A: Pt was resting and on the phone when content strategy lead stopped by. Pt expressed no needs right now. P: Collections Technician informed pt that if he needed anything from the content strategy lead area to let his nurse know. Collections Technician will follow up as needed.
--- NOTE | 2024-02-22 11:49 | NUR ---
Pt breathing is very quick shallow breaths. Gave pt incentive spirometer and educated on use. Pt not able to complete task of using IS very well. Pt reports that he just can't take deep breaths. Pt sitting up in the recliner at this time.
[2024-02-23] VITALS (7 sets, daily range): BP systolic 128–147; BP diastolic 68–75; PULSE 72–84; TEMP 98.1–98.8
[2024-02-23 06:08] LABS: BASO % 0.1 % (0.0-2.0); EOS # 0.1 K/mm3 (0.0-0.7); EOS % 0.9 % (0.0-4.0); GRAN # 9.9 K/mm3 (1.4-6.5); GRAN % 83.3 % (42.2-75.2); LYMPH % 8.1 % (20.0-51.0); MEAN CELL VOLUME 91 fl (80.0-100.0); MEAN CORPUSCULAR HGB CONC 32 g/dl (33.0-37.0); MEAN PLATELET VOLUME 9.9 fl (7.4-10.4); MONO # 0.8 K/mm3 (0.1-0.6); MONO % 6.7 % (1.7-9.3); PLATELET COUNT 214 K/mm3 (130-400); RED BLOOD COUNT 3.32 M/mm3 (4.20-5.60); REDCELL DISTRIBUTION WIDTH-CV 13.5 % (11.5-14.5)
[2024-02-23 06:19] LABS: HEMATOCRIT 30.1 % (42.0-52.0); HEMOGLOBIN 9.7 g/dl (13.5-18.0); MEAN CORPUSCULAR HEMOGLOBIN 29 pg (27-31)
[2024-02-23 06:22] LABS: ALBUMIN 2.6 g/dL (3.4-4.8); BILIRUBIN,TOTAL 0.3 mg/dL (0.2-1.2); CALCIUM 8.7 mg/dL (8.4-10.2); CREATININE, serum 0.88 mg/dL (0.72-1.25); POTASSIUM 3.6 mEq/L (3.5-4.5); TOTAL PROTEIN 5.8 g/dl (6.2-8.1)
[2024-02-23] MEDS ORDERED: Docusate Sodium 100 MG CAP PO SCH (09:00)
--- NOTE | 2024-02-23 09:00 | NUR ---
Pt. sitting up in bed. Pt. is a&OX3, assessment complete. INT to rt. hand patent. Pt. denies pain at this time. Call light within reach.
--- NOTE | 2024-02-23 09:51 | NUR ---
SMOOTH STUCCO RESURFACER met with pt bedside to discuss home health. SMOOTH STUCCO RESURFACER educated pt on what home health is and why it is an option for him. PT stated he goes to cardiac rehab and SMOOTH STUCCO RESURFACER educated pt on the differences. Pt declined HH at this time. SMOOTH STUCCO RESURFACER will continue to follow for discharge planning. D/C plan: Home
--- NOTE | 2024-02-23 12:21 | NUR ---
CORONER/MEDICAL EXAMINER was notified from Pt bedside nurse that he would like a walker to d/c with. CORONER/MEDICAL EXAMINER contacted Dr. Casey for approval. PRUDENCE faxed [facility] referral and called.
[2024-02-23] MEDS ORDERED: AMOXICILLIN 8751 TAB PO (14:27)
[2024-02-23] MEDS ORDERED: ROXICODONE 55 MG/TAB PO (14:31)
--- NOTE | 2024-02-23 15:23 | NUR ---
Pt. has met discharge criteria. INT discontinued from rt. hand. Reviewed and gave discharge packet to the pt. and . Pt. and verbalize understanding. Pt. dressed and escorted out by wheelchair.
== END 2024-02-23 16:00 | disposition home or self-care (01) | DRG 418 ==
LOC: COL.ER 17:22 → SURG 20:10
PROVIDERS: Nurse Practitioner Family; Nurse Practitioner Primary Care; Surgery; ADMIT Hospitalist
PROC: 8E0W4CZ Robotic Assisted Procedure of Trunk Region, Percutaneous Endoscopic Approach (ICD-10-PCS; 2024-02-21)
PROC: 0FT44ZZ Resection of Gallbladder, Percutaneous Endoscopic Approach (ICD-10-PCS; principal; 2024-02-21 16:30)
DX: K80.00 Calculus of gallbladder with acute cholecystitis without obstruction (principal); J96.11 Chronic respiratory failure with hypoxia; I10 Essential (primary) hypertension; J44.9 Chronic obstructive pulmonary disease, unspecified; D64.9 Anemia, unspecified; E78.5 Hyperlipidemia, unspecified; F17.210 Nicotine dependence, cigarettes, uncomplicated; Z90.49 Acquired absence of other specified parts of digestive tract; Z90.79 Acquired absence of other genital organ(s); Z95.0 Presence of cardiac pacemaker; Z85.46 Personal history of malignant neoplasm of prostate; Z85.51 Personal history of malignant neoplasm of bladder; Z92.3 Personal history of irradiation; Z90.89 Acquired absence of other organs; Z95.4 Presence of other heart-valve replacement; Z88.1 Allergy status to other antibiotic agents; I25.2 Old myocardial infarction; Z79.82 Long term (current) use of aspirin; Z79.02 Long term (current) use of antithrombotics/antiplatelets; Z79.899 Other long term (current) drug therapy; Z99.81 Dependence on supplemental oxygen
CPT/HCPCS: G0378; J0690; J1100; J1170; J1885; J2270; J2371; J2405; J2470; J2543; J2704; J3010; J7030; J7050; J7120; Q9967